=== PATIENT | male | born 1945 | race Caucasian/White ===

== ENCOUNTER → 2018-04-06 12:57 | Outpatient (CLI) | payer MEDICARE, SELFPAY ==
[2018-01-05 16:31] VITALS: TEMP 36.6
[2018-04-06 13:14] LABS: Add Manual Diff / Slide Review NO; Basophils Percent Auto 0.5 % (0-2); Hematocrit 45.4 % (41-53); Hemoglobin 15.3 g/dL (13.5-17.5); Mean Corpuscular HGB Conc 33.8 % (30-36); Mean Corpuscular Hemoglobin 31.4 PG (26-34); Mean Corpuscular Volume 92.8 fL (80-100); Neutrophils Absolute Auto 6300 /uL (3000-5900); Neutrophils Percent Auto 84.5 % (50-75); Platelet Count 328 X10^3/uL (150-400); Red Blood Cell Count 4.89 X10^6/uL (4.5-5.9); Red Cell Distribution Width 14.2 % (11.6-14.8); White Blood Cell Count 7.4 X10^3/uL (4.5-11.0)
[2018-04-06 13:29] LABS: Alanine Aminotransferase 43 IU/L (21-72); Albumin 4.2 g/dL (3.5-5.0); Albumin Globulin Ratio 1.7 (1.0-2.8); Alkaline Phosphatase 55 U/L (38-126); Aspartate Aminotransferase 47 IU/L (17-59); BUN Creatinine Ratio 23.8 (6-22); Blood Urea Nitrogen 19 mg/dL (9-20); Calcium 9.3 mg/dL (8.4-10.2); Carbon Dioxide 28 mmol/L (22-32); Chloride 103 mmol/L (98-107); Estimated Glomerular Filt Rate > 60.0 mL/min (>60); Globulin 2.5 g/dL (1.7-4.1); Glucose 112 mg/dL (80-110); HEMOLYSIS < 15 (0-50); Potassium 3.8 mmol/L (3.4-5.1); Sodium 140 mmol/L (137-145); Total Protein 6.7 g/dL (6.3-8.2)
[2018-04-06 13:47] LABS: Bilirubin Total 0.6 mg/dL (0.2-1.3)
[2018-04-09 15:52] LABS: Abnormal Protein Band 1 0.2 g/dL (NONE DETECTED); Albumin 4.1 g/dL (3.8-4.8); Alpha 1 Globulin 0.3 g/dL (0.2-0.3); Alpha 2 Globulin 0.6 g/dL (0.5-0.9); Beta 1 Globulin 0.4 g/dL (0.4-0.6); Gamma Globulin 0.7 g/dL (0.8-1.7); Protein, Total 6.4 g/dL (6.1-8.1)
== END ==
PROVIDERS: PCP Family Medicine; Visit Provider Nurse Practitioner Gerontology
DX: D47.2 Monoclonal gammopathy (principal)
CPT/HCPCS: 36415; 80053; 84155; 84165; 85025

== ENCOUNTER → 2018-08-03 14:00 | Outpatient (CLI) | payer MEDICARE, SELFPAY ==
[2018-08-03 15:20] LABS: Alanine Aminotransferase 33 IU/L (21-72); Albumin 4.3 g/dL (3.5-5.0); Albumin Globulin Ratio 1.6 (1.0-2.8); Alkaline Phosphatase 68 U/L (38-126); Aspartate Aminotransferase 36 IU/L (17-59); BUN Creatinine Ratio 18.8 (6-22); Bilirubin Total 0.5 mg/dL (0.2-1.3); Blood Urea Nitrogen 15 mg/dL (9-20); Calcium 9.3 mg/dL (8.4-10.2); Carbon Dioxide 26 mmol/L (22-32); Chloride 103 mmol/L (98-107); Estimated Glomerular Filt Rate > 60.0 mL/min (>60); Globulin 2.7 g/dL (1.7-4.1); Glucose 104 mg/dL (80-110); HEMOLYSIS < 15 (0-50); Potassium 3.7 mmol/L (3.4-5.1); Sodium 141 mmol/L (137-145)
[2018-08-03 15:21] LABS: Add Manual Diff / Slide Review NO; Basophils Percent Auto 0.5 % (0-2); Eosinophils Percent Auto 0.3 % (2-4); Hematocrit 45.8 % (41-53); Hemoglobin 15.5 g/dL (13.5-17.5); Lymphocytes Percent Auto 11.3 % (25-40); Mean Corpuscular HGB Conc 33.9 % (30-36); Mean Corpuscular Volume 91.4 fL (80-100); Monocytes Percent Auto 6.2 % (3-14); Neutrophils Absolute Auto 7800 /uL (3000-5900); Neutrophils Percent Auto 81.7 % (50-75); Platelet Count 350 X10^3/uL (150-400); Red Cell Distribution Width 13.9 % (11.6-14.8); White Blood Cell Count 9.5 X10^3/uL (4.5-11.0)
[2018-08-06 18:49] LABS: Beta-2-Microglobulin 1.75 mg/L (< 2.52)
[2018-08-06 22:19] LABS: Abnormal Protein Band 1 0.2 g/dL (NONE DETECTED); Albumin 4.2 g/dL (3.8-4.8); Alpha 1 Globulin 0.3 g/dL (0.2-0.3); Alpha 2 Globulin 0.6 g/dL (0.5-0.9); Beta 1 Globulin 0.4 g/dL (0.4-0.6); Gamma Globulin 0.8 g/dL (0.8-1.7); Protein, Total 6.5 g/dL (6.1-8.1)
== END ==
PROVIDERS: PCP Family Medicine; Visit Provider Nurse Practitioner Gerontology
DX: D47.2 Monoclonal gammopathy (principal)
CPT/HCPCS: 36415; 80053; 82232; 84155; 84165; 85025

== ENCOUNTER → 2018-10-15 09:41 | Outpatient (CLI) | payer OTHER, SELFPAY | PROVIDERS: PCP Family Medicine; Visit Provider Family Medicine | DX: G56.02 Carpal tunnel syndrome, left upper limb (principal) | CPT/HCPCS: 95885; 95886; 95910 ==

== ENCOUNTER → 2019-01-28 16:21 | Outpatient (CLI) | payer OTHER, SELFPAY ==
--- NOTE | 2019-01-28 16:24 | DI.RAD.S_ITS ---
PROCEDURE: XR LUMBAR SPINE 2-3V INDICATIONS: LUMBAR RADICULOPATY TECHNIQUE: 3 views of the lumbar spine were acquired. COMPARISON: [facility], CT, ABDOMEN W&WO CONTRAST, 01/31/2016, 8:37. [facility], CT, ABDOMEN W&WO CONTRAST, 06/30/2017, 9:47. FINDINGS: Bones: 5 [id number] vertebrae are present. There is near-normal bony alignment with only a slight degree of grade one anterolisthesis of L3 on L4. There is, however, moderately severe to severe multilevel degenerative disc disease and facet osteoarthritis along the thoracolumbar junction and lumbosacral spine. The facet osteoarthritis is moderate to the L3-4 level where it becomes moderately severe than more prominent at L4-5 and especially L5-S1. The generalized reduction in disc height is moderately severe overall, and multilevel spinal and foraminal stenosis would be expected. No vertebral body compression fractures. No suspicious bony lesions. Soft tissues: Overlying bowel gas pattern is normal. There are right upper quadrant suspicious soft tissue calcifications and also similar calcifications are seen at the left upper quadrant in a pattern consistent with relatively extensive urinary tract stones. IMPRESSION: Moderately severe to severe degenerative disc disease and facet osteoarthritis overall, best seen from L3 inferiorly with associated mild grade 1 anterolisthesis of L3 on L4. Incidental finding of multiple small renal collecting system calculi bilaterally, also previously present during CT scanning from January of 2016. Dictated by: Cecilio Manuel M.D. on 01/28/2019 at 17:03 Approved by: Cecilio Manuel M.D. on 01/28/2019 at 17:06
== END ==
PROVIDERS: PCP Family Medicine; Visit Provider Family Medicine
DX: M51.16 Intervertebral disc disorders with radiculopathy, lumbar region (principal); M47.26 Other spondylosis with radiculopathy, lumbar region; M43.16 Spondylolisthesis, lumbar region; N20.0 Calculus of kidney
CPT/HCPCS: 72100

== ENCOUNTER → 2019-03-03 17:42 | Outpatient (CLI) | payer OTHER, SELFPAY ==
--- NOTE | 2019-03-03 | DI.MRI.S_ITS ---
PROCEDURE: MR LUMBAR SPINE WO CON INDICATIONS: OTHER SPONDYLOSIS WITH RADICULOPATHY, LUMBOSACRAL TECHNIQUE: Noncontrast sagittal T1 spin echo and T2 fast echo, sagittal STIR, axial T1 and T2 fast spin echo through the lumbar spine. In cases with scoliosis, additional coronal T2 fast spin echo may be performed. COMPARISON: [facility], CR, CHEST 2 VIEW, 04/24/2016, 13:27. [facility], CR, CHEST 2 VIEW, 05/27/2008, 12:47. [facility], CT, ABDOMEN W&WO CONTRAST, 06/30/2017, 9:47. [facility], CR, XR LUMBAR SPINE 2-3V, 01/28/2019, 16:30. FINDINGS: Image quality: Excellent. Alignment and Curvature: Suspicious for transitional anatomy. Vestigial ribs are noted at T12. L5 is sacralized. There is normal bony alignment. Bone Marrow: Degenerative endplate signal changes are present in the lower thoracic spine and lumbar spine. No acute vertebral body compression fractures. Spinal Cord: Conus medullaris terminates at the T12-L1 level. Visualized cord demonstrates normal signal and size. Paraspinous Soft Tissues: No paravertebral masses. T11-T12: Severe loss of disc height and disc desiccation. There is diffuse posterior disc bulge and disc osteophyte complex. Mild bilateral facet arthropathy. The central canal is moderately narrowed. Moderate to severe bilateral foraminal stenosis. Suspect nerve root impingement. T12-L1: Severe loss of disc height and disc desiccation. There is diffuse posterior disc bulge and disc osteophyte complex. Nhqi-eq-svmbmfft bilateral facet arthropathy. The central canal is moderately narrowed. Moderate to severe bilateral foraminal stenosis. Suspect nerve root impingement. L1-L2: Isdugeyz-ch-vwqbrz loss of disc height and disc desiccation. There is diffuse posterior disc bulge and disc osteophyte complex. Mild bilateral facet arthropathy and hypertrophy of ligamentum flavum. The central canal is moderately narrowed. Severe right and moderate left foraminal stenosis. There is possible right nerve root impingement. L2-L3: Nyqsxmmn-fc-gxraph loss of disc height and disc desiccation. There is diffuse posterior disc bulge and disc osteophyte complex. Severe right and moderate left facet arthropathy and hypertrophy of ligamentum flavum. The central canal is severely narrowed. Severe bilateral foraminal stenosis. There is nerve root impingement bilaterally. L3-L4: Severe loss of disc height and disc desiccation. There is diffuse posterior disc bulge and disc osteophyte complex. Severe bilateral facet arthropathy and hypertrophy of ligamentum flavum. The central canal is severely narrowed. Severe left and moderate right foraminal stenosis. There is left nerve root impingement. L4-L5: Severe loss of disc height and disc desiccation. There is diffuse posterior disc bulge and disc osteophyte complex. Severe bilateral facet arthropathy. The central canal is moderately narrowed. Moderate to severe bilateral foraminal stenosis. There is possible bilateral nerve root impingement. L5-S1: Normal appearance. IMPRESSION: 1. Transitional anatomy is present. There is sacralization of L5. Vestigial ribs are noted at T12. Please confirm vertebral levels on radiographs prior to any surgery or interventional procedures. 2. Multilevel degenerative disc disease and facet arthropathy as described. 3. Severe central canal stenosis at L2-L3 and L3-L4. Moderate central canal stenosis at T11-T12, T12-L1, L1-L2 and L4-L5. 4. Multilevel foraminal stenosis as described. Dictated by: Maximus Todd M.D. on 03/05/2019 at 8:30 Approved by: Maximus Todd M.D. on 03/05/2019 at 9:36
== END ==
PROVIDERS: Family Provider Family Medicine; PCP Family Medicine; Visit Provider Orthopaedic Surgery Orthopaedic Surgery of the Spine
DX: M47.27 Other spondylosis with radiculopathy, lumbosacral region (principal); M47.26 Other spondylosis with radiculopathy, lumbar region; M51.16 Intervertebral disc disorders with radiculopathy, lumbar region; M51.17 Intervertebral disc disorders with radiculopathy, lumbosacral region; M48.061 Spinal stenosis, lumbar region without neurogenic claudication; M48.07 Spinal stenosis, lumbosacral region; M48.04 Spinal stenosis, thoracic region; M48.05 Spinal stenosis, thoracolumbar region
CPT/HCPCS: 72148

== ENCOUNTER → 2019-04-01 10:44 | Outpatient (CLI) | payer OTHER, SELFPAY ==
--- NOTE | 2019-04-01 11:11 | DI.CT.S_ITS ---
PROCEDURE: CT ABDOMEN WO/W CON INDICATIONS: right renal mass TECHNIQUE: Optional 5 mm thick noncontrast images acquired from the diaphragm to the iliac crests. After the administration of intravenous contrast, 5 mm thick images again acquired from the diaphragm to the iliac crests in the arterial and urographic phases. 5 mm thick coronal and sagittal reformats were then acquired. For radiation dose reduction, the following was used: automated exposure control, adjustment of mA and/or kV according to patient size. COMPARISON: [facility], CT, ABDOMEN W&WO CONTRAST, 06/30/2017, 9:47. [facility], CT, ABDOMEN W&WO CONTRAST, 01/31/2016, 8:37. FINDINGS: Image quality: Excellent. Lung bases: Lung bases are clear. Heart size is normal. Genitourinary: Within the collecting system of the kidneys bilaterally multiple calculi are present none of which appear obstructed, ranging in size from several millimeters to almost 1 cm. There is no sign of urothelial mass lesion but the exophytic lobulated mass at the lateral cortex of the lower third of the right kidney is again seen and demonstrates internal enhancement raising the internal radiodensity in the same area from approximately 20 Hounsfield units to 47 Hounsfield units on delayed imaging. This indicates internal viable tissue, but its interval change in size has been minimal if any. For example, the current maximal dimensions of this mass are 2.2 cm AP and 2.5 cm transverse, versus 2.4 x 2.2 cm previously. Other solid organs: Liver is normal in size and enhancement. Gallbladder appears normal.. Biliary system is non dilated. Pancreas enhances normally. Spleen is normal in size and enhancement. No adrenal nodules. Peritoneum and bowel: Unenhanced bowel loops are normal in wall thickness and caliber. No free fluid or air. Nodes and vessels: No retroperitoneal or mesenteric adenopathy by size criteria. Aorta and inferior vena cava are normal in caliber. A normal appendix is found at the right lower quadrant. Bones: No suspicious bony lesions. No vertebral body compression fractures. Miscellaneous: No ventral hernias. IMPRESSION: A lobulated mass at the lateral cortex of the lower third of the right kidney is again seen with maximal axial dimensions of 2.5 x 2.2 cm. This lobulated mass has internal soft tissue component showing definite contrast enhancement and therefore this does not represent a simple or a minimally complex cyst. This structure increases in radiodensity from approximately 20 Hounsfield units to 47 Hounsfield units on delayed post contrast imaging. This structure is considered most likely a low grade neoplasm, and continued urology consultation and followup CT or MR scanning at a schedule established by the Urology Department is recommended. Dictated by: Cecilio Manuel M.D. on 04/01/2019 at 15:00 Approved by: Cecilio Manuel M.D. on 04/01/2019 at 15:20
== END ==
PROVIDERS: Family Provider Urology; PCP Family Medicine; Visit Provider Family Medicine
DX: N28.89 Other specified disorders of kidney and ureter (principal)
CPT/HCPCS: 74170; Q9967

== ENCOUNTER 2019-07-19 10:03 | Emergency (ER) | payer OTHER, SELFPAY ==
[2019-07-19 10:08] VITALS: BP 180/81; PULSE 63; RESP 16; TEMP 36.4; O2SAT 96; BMI 25.0
--- NOTE | 2019-07-19 10:17 | PC.NURSE ---
Patient reports sudden onset of burning sensation in left thigh it felt like I was going to get a el horse in left calf. Reports concerns of blood clot. I read through all my discharge paper work after my Laminectomy in lower back friday. Incision site appears well, healing WNL. Denies much pain at incision site unless I lay on it Denies SOB but I am worried it is going that way Patient and report anxiety. you just don't mess around with this stuff reassured patient it was a good decision to get checked out especially after recent surgery
[2019-07-19 10:21] VITALS: BP 180/81; PULSE 61; RESP 12; O2SAT 99
[2019-07-19 11:00] VITALS: BP 165/78; PULSE 62; RESP 17; O2SAT 96
--- NOTE | 2019-07-19 11:28 | DI.US.S_ITS ---
PROCEDURE: US PERIPH VENOUS LOW EXTREM LT INDICATIONS: CALF PAIN AFTER SURGERY TECHNIQUE: Real-time imaging, as well as color and pulse Doppler interrogation, were performed of the lower extremity deep veins from the inguinal ligament to the popliteal fossa. COMPARISON: None. FINDINGS: The common femoral, femoral and popliteal veins are normally compressible, and free of intraluminal thrombus. Color and pulse Doppler demonstrate normal phasic intraluminal flow. There is normal augmentation response to distal compression maneuver. IMPRESSION: No evidence of DVT in visualized portion of left lower extremity veins. Dictated by: Zack Rossi M.D. on 07/19/2019 at 12:17 Approved by: Zack Rossi M.D. on 07/19/2019 at 12:17
--- NOTE | 2019-07-19 11:32 | ED.EXTPRO ---
HPI - Extremity Problem General Chief complaint: Extremity Problem,Nontraumatic Stated complaint: flushing heat in leg/pain in left leg Time Seen by Provider: 07/19/19 10:07 Source: patient Mode of arrival: Ambulatory History of Present Illness HPI Narrative: Patient comes emergency department complaining left leg heat and pain started this morning. Patient had a laminectomy 4 days ago, and states he has been getting up and around. He states that this morning, he noticed a hot feeling in thigh, almost as if somebody was blowing a hot puff of air on the area. He then noticed a ?charley horse? type pain in his left calf. Patient states that all of the discomfort has resolved. He denies any swelling in his leg. No history of DVT. He does not have a history of smoking and is no family history of DVT. No chest pain or shortness of breath. He states that he has been recovering well from his surgery otherwise. No fevers. No other complaints at this time. Related Data Home Medications Medication Instructions Recorded Confirmed ketoconazole 1 applic TOPICAL BID 07/19/19 07/19/19 oxycodone-acetaminophen 1 - 2 tab PO Q6H PRN 07/19/19 07/19/19 prednisone 4 mg PO DAILY 07/19/19 07/19/19 Allergies Allergy/AdvReac Type Severity Reaction Status Date / Time iron [IRON] AdvReac Unknown HIVES Verified 04/15/18 15:58 Review of Systems Constitutional Constitutional: Denies chills, Denies fatigue, Denies fever(s), Denies frequent falls, Denies lethargy and Denies weakness Eyes Eyes: Denies change in vision, Denies eye discharge, Denies irritation and Denies loss of vision ENT Ears, Nose, Mouth, and Throat: Denies change in voice, Denies dizziness, Denies neck pain, Denies sore throat and Denies throat swelling Cardiovascular Cardiovascular: Denies chest pain, Denies irregular heart rhythm, Denies lightheadedness, Denies palpitations, Denies dyspnea, Denies dyspnea on exertion and Denies orthopnea Respiratory Respiratory: Denies cough, Denies dyspnea, Denies dyspnea on exertion and Denies wheezing Gastrointestinal Gastrointestinal: Denies abdominal pain, Denies change in bowel habits, Denies diarrhea, Denies nausea and Denies vomiting Genitourinary Genitourinary: Denies hematuria, Denies flank pain, Denies urinary incontinence and Denies urinary urgency Musculoskeletal Musculoskeletal: Denies back pain, Denies muscle weakness, Denies neck pain, Denies numbness and Denies tingling Comments: Leg pain Integumentary/Breasts Skin/Breast: Denies pruritus, Denies erythema, Denies rash and Denies wounds Neurologic Neurologic: Denies behavioral changes, Denies confusion, Denies dizziness, Denies frequent falls, Denies loss of vision, Denies numbness, Denies tingling and Denies weakness Psychiatric Psychiatric: Denies anxiety, Denies behavioral changes, Denies confusion, Denies depression, Denies homicidal ideation and Denies suicidal ideation Endocrine Endocrine: Denies fatigue, Denies flushing and Denies palpitations Hematologic/Lymphatic Hematologic/Lymphatic: Denies easy bruising Allergic/Immunologic Allergic/Immunologic: Denies urticaria, Denies throat swelling and Denies wheezing Patient History Medical History (Updated 07/19/19 @ 12:11 by Maryan Gannon MD) Monoclonal gammopathy of undetermined significance (Acute) Surgical History (Updated 07/19/19 @ 11:42 by aMryan Gannon MD) H/O laminectomy (Acute) Social History (Updated 07/19/19 @ 11:42 by Maryan Gannon MD) Smoking Status: Never smoker Exam Initial Vital Signs Initial Vital Signs: Vital Signs Temperature 97.6 F 07/19/19 10:08 Pulse Rate 63 07/19/19 10:08 Respiratory Rate 16 07/19/19 10:08 Blood Pressure 180/81 H 07/19/19 10:08 Pulse Oximetry 96 07/19/19 10:08 Const General: cooperative and well developed Nutritional Appearance: well nourished Orientation: alert, awake, oriented x3 and not confused [facility] Head: normocephalic and atraumatic Ears: external ears normal Nose: external nose normal and No nasal discharge Face and sinus: face symmetric and No dry mucous membranes Mouth: oral mucosae normal and moist mucous membranes Teeth and gingiva: dentition normal Throat: uvula midline Eyes General: appearance normal, both eyes and all related structures Eyelids: eyelids normal Conjunctivae: conjunctivae normal Sclera: sclerae normal Pupils: PERRL EOM: EOM intact bilaterally Neck Neck: normal visual inspection, trachea midline, No lymphadenopathy, No midline deformity and No JVD Lymphatic: No lymphedema Chest Chest: normal inspection of the chest Resp Effort & Inspection: normal respiratory effort, able to speak in complete sentences, no respiratory distress and no use of accessory muscles Auscultation: clear to auscultation bilaterally, no rales, no rhonchi and no wheezes Cardio Rate: regular rate Rhythm: regular rhythm Heart Sounds: no click, no gallops, murmur systolic II/ and no rubs Pulses: normal peripheral pulses GI Inspection: non-distended Palpation: soft, no hepatosplenomegaly, No guarding, No pulsatile mass and No tender Back/Spine/Pelvis Back: No CVA tenderness Cervical Spine: cervical ROM normal and No pain with cervical ROM Thoracic/Lumbar Spine: thoracic and lumbar spine normal to inspection Skin General: no rashes or lesions noted, No jaundice and No petechiae Other: Clean, dry, intact and healing lumbar surgical incision. Neuro General: alert, oriented x3, gait normal and no focal motor deficits Speech: speech normal Extrem General: full ROM, no clubbing, cyanosis or edema, no pedal edema and no calf tenderness Psych Appearance: well kempt Mental Status: mental status grossly normal Attitude: cooperative Thought Content: normal and suicidality Judgment: judgment good Course Course Course Narrative: Patient was worked up with ultrasound of his left lower extremity, and was given a dose of Percocet in the ED, as he was due for his pain medication. The ultrasound was negative for DVT. I did not find any evidence of infection, and I felt the patient was stable for discharge home. We have discussed home management of symptoms, as well as the usual indications for return. Orders Ordered: ED Orders 07/19/19 11:28 US periph venous low extrem lt Stat Discontinued Medications Oxycodone/Acetaminophen (Percocet 5/325) 1 tab PO NOW ONE Stop: 07/19/19 11:29 Last Admin: 07/19/19 12:12 Dose: 1 tab Documented by: SILAS Vital Signs Vital signs: Vital Signs - 8 hr 07/19/19 12:03 Pulse Rate 62 Respiratory Rate 17 Blood Pressure [Right Arm] 155/64 H Pulse Oximetry 97 MDM - Extremity (Nontraumatic) Medical Records Attestation: I reviewed the patient's medical records. Imaging Data Ultrasound extremity: Radiologist's impression: PROCEDURE: US PERIPH VENOUS LOW EXTREM LT INDICATIONS: CALF PAIN AFTER SURGERY TECHNIQUE: Real-time imaging, as well as color and pulse Doppler interrogation, were performed of the lower extremity deep veins from the inguinal ligament to the popliteal fossa. COMPARISON: None. FINDINGS: The common femoral, femoral and popliteal veins are normally compressible, and free of intraluminal thrombus. Color and pulse Doppler demonstrate normal phasic intraluminal flow. There is normal augmentation response to distal compression maneuver. IMPRESSION: No evidence of DVT in visualized portion of left lower extremity veins. Dictated by: Zack Rossi M.D. on 07/19/2019 at 12:17 Approved by: Zack Rossi M.D. on 07/19/2019 at 12:17 Discharge Plan Departure Patient Disposition: Home Clinical Impression: Acute leg pain Qualifiers: Laterality: left Qualified Code(s): M79.605 - Pain in left leg Discharge Date/Time: 07/19/19 12:22 Instructions: DI for Leg Pain Activity Restrictions/Additional Instructions: Your ultrasound looks good--there is no evidence of a blood clot in your leg. Additionally, there is no evidence of infection at this time. The pain may be caused by actual cramping, or by temporary nerve dysfunction related to your recent surgery. He may take her pain medications as needed, should follow up with your surgeon, as planned, for postoperative re-evaluation. Prescriptions: No Action prednisone 1 mg tablet 4 mg PO DAILY RF: 0 ketoconazole 2 % cream 1 applic TOPICAL BID RF: 0 oxycodone-acetaminophen 5-325 mg tablet 1 - 2 tab PO Q6H PRN (Reason: POST-OP PAIN) RF: 0 Referrals: Matt George MD [Primary Care Provider] -
[2019-07-19 12:03] VITALS: BP 155/64; PULSE 62; RESP 17; O2SAT 97
[2019-07-19] MEDS: OXYCODONE/ACETAMINOPHEN 5/325 TABLET 1 TAB PO (12:12)
== END 2019-07-19 12:22 | disposition home or self-care (01) ==
PROVIDERS: Emergency Provider Emergency Medicine; Family Provider Urology; PCP Family Medicine
DX: M79.605 Pain in left leg (principal)
CPT/HCPCS: 93041; 93971; 99283

== ENCOUNTER 2019-08-16 13:49 | Day surgery (SDC) | payer OTHER, SELFPAY ==
[2019-08-16] VITALS (7 sets, daily range): BP systolic 131–165; BP diastolic 73–88; PULSE 66–72; RESP 11–16; TEMP 36.1–37.6; O2SAT 96–99; BMI 24.6
--- NOTE | 2019-08-16 08:07 | PM.HP.1 ---
History of Present Illness History of Present Illness Date Patient Seen: 08/16/19 Chief complaint: [id number] Narrative: 74 year old male comes in today for consideration of a screening colonoscopy. One previous colonoscopy in 2007, significant for hyperplastic polyp. No family history of colon cancer or colon polyps. There have been no lower GI symptoms suggesting disease such as change in bowel habits, bleeding, abdominal pain or anemia. Overall health issues have been stable, including no major cardiac events for at least 6 weeks. PCP: Dr. George Past medical history: Hypertension Plan myalgia rheumatica Hyperlipidemia Carpal tunnel syndrome, left Hearing loss Kidney mass Left lower quadrant pain Onychiomycosis Anxiety disorder Insomnia Degenerative joint disease Erectile dysfunction Past surgical history: Tonsillectomy and adenoidectomy Vasectomy Bilateral carpal tunnel syndrome Right partial knee replacement Back surgery Family history: ASCVD, pancreatic cancer Social history: , now in new relationship. Medications: Prednisone 4 mg p.o. daily, on taper Ketoconazole 2% cream to affected areas twice daily . Patient History Medical History (Updated 08/03/19 @ 00:00 by ) Monoclonal gammopathy of undetermined significance (Acute) Surgical History (Updated 07/19/19 @ 11:42 by Maryan Gannon MD) H/O laminectomy (Acute) Family & Social History Tobacco & Substance use: Smoking Status Never smoker Meds Home Medications and Allergies Home Medications Medication Instructions Recorded Confirmed Type ketoconazole 1 applic TOPICAL BID 07/19/19 07/19/19 History prednisone 4 mg PO DAILY 07/19/19 07/19/19 History acetaminophen [Tylenol] 325 mg PO QID PRN 08/16/19 08/16/19 History Allergies Allergy/AdvReac Type Severity Reaction Status Date / Time No Known Drug Allergies Allergy Verified 08/16/19 14:10 Review of Systems Review of Systems ROS Unobtainable: All systems reviewed & are unremarkable except as noted in HPI and below Exam Narrative Exam Narrative: GENERAL: Alert and oriented, appearing stated age and in no acute distress. HEENT: Head normocephalic/atraumatic. LUNGS: Clear to ausculation bilaterally, no wheezes, rhonchi or rales. CV: Normal S1 and S2 with regular rate and rhythm, no audible murmurs, rubs or gallops. ABDOMEN: Soft, non-tender, non-distended, no organomegaly. Positive bowel sounds. EXTREMITIES: No clubbing, cyanosis, or edema. NEURO: Cranial nerves II through XII grossly intact, no focal deficits. PSYCH: Alert and oriented x 3. SKIN: No concerning lesions. Assessment & Plan Assessment & Plan narrative: 1. History of colon polyps, hyperplastic 2. Screening for colon cancer Plan for colonoscopy. The nature and character of the procedure as well as anticipated results were discussed. The possibility of not completing the procedure was also discussed. Possible complications including aspiration pneumonia, bleeding, perforation and reaction to medications either for sedation or preparation and missed lesions were discussed. Questions were answered and proceeding to the colonoscopy was elected. Informed consent signed. I sincerely appreciate the referral allowing me to participate in this patient's care. Please contact me with any questions or concerns.
--- NOTE | 2019-08-16 08:16 | PM.OP.ENDO ---
Operative Date/Time/Diagnoses Date of procedure: 08/16/19 Time of procedure: 14:40 Pre-op diagnosis: 1. History of colon polyps, hyperplastic 2. Screening for colon cancer Post-op diagnosis: other (Normal colonoscopy) Procedure & Clinicians Study performed: 1. Colonoscopy Indications: 1. History of colon polyps, hyperplastic 2. Screening for colon cancer Surgeon: Juanita Lozano Procedure Notes Procedure in detail: ENDOSCOPIST: Juanita Lozano MD Sedation RN: Cecilia Bond RN Sedation start time: 14:39 Sedation end time: 15:13 PROCEDURE: Colonoscopy INDICATIONS: 1. History of colon polyps, hyperplastic 2. Screening for colon cancer MEDICATION: Levsin 0.125 mg sublingual, incremental doses of Versed and fentanyl until appropriate level sedation achieved. ASA CLASS: 2 CECAL WITHDRAWAL TIME: 8 minutes COMPLICATIONS: None. EXTENT OF PROCEDURE: Cecum. QUALITY OF PREP: Good with portions of liquid stool. PROCEDURE: Prior to insertion of the colonoscope, a digital rectal examination was accomplished with circumferential palpation of the distal rectal mucosa without significant findings being noted. The high-definition colonoscope was passed into the rectum in the usual fashion and advanced over to the cecum without difficulty. The ileocecal valve, appendiceal stoma, and medial wall all could be inspected and no abnormalities were seen. ASCENDING COLON: As the colonoscope was withdrawn, care was taken to expose and inspect the haustral folds and no abnormalities were seen. HEPATIC FLEXURE: Normal, no polyps, diverticula, or other abnormalities. TRANSVERSE COLON: Normal, no polyps, diverticula, or other abnormalities. DESCENDING COLON: Moderate diverticulosis, otherwise, normal, no polyps or other abnormalities. SIGMOID COLON: Moderate diverticulosis, otherwise, normal, no polyps or other abnormalities. RECTUM: Normal. J maneuver was produced. There was no significant perianal disease. The J maneuver was broken. The remainder of the rectum was inspected and there was no external hemorrhoid disease. The scope was withdrawn. IMPRESSION: 1. Normal colonoscopy 2. Moderate diverticulosis, left-sided PLAN: 1. Repeat colonoscopy in 10 years. The possibility of a missed lesion including a malignancy has been discussed with the patient previously. Potential alarm symptoms have been discussed and should be reported immediately.
[2019-08-16] MEDS: HYOSCYAMINE 0.125 MG TABLET PO (14:18)
[2019-08-16] MEDS: SODIUM CHLORIDE 0.9% 1,000 ML 200 ML IV (14:19)
[2019-08-16] MEDS: fentaNYL 250 MCG/5 ML INJ IV (14:39)
[2019-08-16] MEDS: MIDAZOLAM 5 MG/5 ML VIAL IV (14:40)
--- NOTE | 2019-08-16 15:33 | SUR.PHASEI ---
HOB elevated, drinking juice, talking, denies pain. spoke to him. Resp unlabored,skin warm and dry
== END 2019-08-16 16:02 | disposition home or self-care (01) ==
PROVIDERS: Family Provider Urology; PCP Family Medicine; Visit Provider Student in an Organized Health Care Education/Training Program
PROC: 0DJD8ZZ Inspection of Lower Intestinal Tract, Via Natural or Artificial Opening Endoscopic (ICD-10-PCS; CPT 45378; principal; 2019-08-16 15:00)
DX: Z12.11 Encounter for screening for malignant neoplasm of colon (principal); Z86.010 Personal history of colon polyps; K57.30 Diverticulosis of large intestine without perforation or abscess without bleeding
CPT/HCPCS: G0105; J2250; J3010

== ENCOUNTER 2019-09-25 09:54 | Emergency (ER) | payer OTHER, SELFPAY ==
[2019-09-25 10:04] VITALS: BP 200/90; PULSE 63; RESP 13; TEMP 35.9; O2SAT 95
--- NOTE | 2019-09-25 10:13 | ED_ITS ---
HPI - Abdominal Pain General Chief Complaint: Abdominal Pain Stated Complaint: SEVERE STOMACH PAIN Time Seen by Provider: 09/25/19 10:06 Source: patient Mode of arrival: Ambulatory Limitations: no limitations History of Present Illness HPI narrative: Patient is 74-year-old male who presents with right upper quadrant pain ongoing for the last 2 days. He has felt nauseous at times and has vomited number of times as well. It's nonradiating. He denies any chest pain or shortness of breath. His he seems to be in quite a bit of distress moment. MD complaint: abdominal pain Onset (ago): day(s) (2) Location: RUQ Severity: moderate Radiation: none Migration to: no migration Associated symptoms: nausea and vomiting Related Data Home Medications Medication Instructions Recorded Confirmed ketoconazole 1 applic TOPICAL DAILY 07/19/19 08/16/19 prednisone 3 mg PO DAILY 07/19/19 08/16/19 acetaminophen [Tylenol] 325 mg PO QID PRN 08/16/19 08/16/19 Previous Rx's Medication Instructions Recorded hydrocodone-acetaminophen 1 tab PO Q6H PRN #10 tab 09/25/19 ketorolac 10 mg PO TID PRN #14 tab 09/25/19 ondansetron 4 mg PO Q8H PRN #10 tab 09/25/19 tamsulosin [Flomax] 0.4 mg PO DAILY #7 cap 09/25/19 Allergies Allergy/AdvReac Type Severity Reaction Status Date / Time No Known Drug Allergies Allergy Verified 08/16/19 14:10 Review of Systems Review of Systems ROS Unobtainable: All systems reviewed & are unremarkable except as noted in HPI and below Constitutional Constitutional: Denies fatigue Cardiovascular Cardiovascular: Denies dyspnea and Denies dyspnea on exertion Respiratory Respiratory: Denies cough, Denies dyspnea, Denies dyspnea on exertion and Denies wheezing Gastrointestinal Gastrointestinal: Reports as per HPI, Reports abdominal pain, Reports nausea and Reports vomiting Genitourinary Genitourinary: Denies hematuria, Denies flank pain, Denies urinary incontinence and Denies urinary urgency Musculoskeletal Musculoskeletal: Denies back pain, Denies muscle weakness, Denies numbness and Denies tingling Integumentary/Breasts Skin/Breast: Denies pruritus, Denies erythema, Denies rash and Denies wounds Neurologic Neurologic: Denies confusion, Denies numbness and Denies tingling Psychiatric Psychiatric: Denies anxiety, Denies confusion, Denies depression, Denies homicidal ideation and Denies suicidal ideation Endocrine Endocrine: Denies fatigue and Denies flushing Allergic/Immunologic Allergic/Immunologic: Denies wheezing Patient History Medical History (Updated 09/25/19 @ 11:59 by Judy Cross DO) Monoclonal gammopathy of undetermined significance (Acute) Surgical History (Updated 07/19/19 @ 11:42 by Maryan Gannon MD) H/O laminectomy (Acute) Social History (Updated 07/19/19 @ 11:42 by Maryan Gannon MD) household members: friend(s) Smoking Status: Never smoker Smoking Status: Never smoker Substance Use Type: does not use Exam Initial Vital Signs Initial Vital Signs: Vital Signs Temperature 96.6 F L 09/25/19 10:04 Pulse Rate 63 09/25/19 10:04 Respiratory Rate 13 09/25/19 10:04 Blood Pressure 200/90 H 09/25/19 10:04 Pulse Oximetry 95 09/25/19 10:04 GENERAL: Alert male appears in distress and discomfort. HEENT: Head atraumatic,EOMI, pupils reactive CARDIOVASCULAR: Regular rate and rhythm without murmurs, rubs or gallops. RESPIRATORY: Breath sounds equal bilaterally, no wheezes rales or rhonchi. ABDOMEN: Soft, nontender. Normoactive bowel sounds all 4 quadrants. No guarding or rebound. : No CVA tenderness EXTREMITIES: Normal range of motion, no clubbing or edema. Neurovascularly intact NEUROLOGICAL: Alert and oriented x4.Normal gait and speech. Cranial nerves II through XII grossly intact. SKIN: Warm, dry, no laceration, no petechiae, no rashes or lesions. Course Orders Ordered: ED Orders 09/25/19 10:14 Complete Blood Count AUTO DIFF Stat Comprehensive Metabolic Panel Stat Lipase Stat 09/25/19 10:31 US abdomen limited Stat 09/25/19 10:36 Urinalysis and Microscopic Stat 09/25/19 10:47 CT abdomen pelvis w con Stat Discontinued Medications Hydromorphone HCl (Dilaudid) 0.5 mg IV NOW ONE Stop: 09/25/19 10:37 Last Admin: 09/25/19 10:39 Dose: 0.5 mg Documented by: MEISENB Sodium Chloride (Normal Saline 0.9%) 1,000 mls @ 150 mls/hr IV CONT ROBERT Last Infusion: 09/25/19 12:24 Dose: 0 mls/hr Documented by: Admin: 09/25/19 10:24 Dose: 150 mls/hr Documented by: RISHABH Ketorolac Tromethamine (Toradol) 30 mg IV NOW ONE Stop: 09/25/19 10:29 Last Admin: 09/25/19 10:32 Dose: 30 mg Documented by: RISHABH Ondansetron HCl (Zofran) 4 mg IV NOW ONE Stop: 09/25/19 10:22 Last Admin: 09/25/19 10:25 Dose: 4 mg Documented by: RISHABH Vital Signs Vital signs: Vital Signs - 8 hr 09/25/19 10:04 09/25/19 10:40 09/25/19 11:17 Temperature 96.6 F L Pulse Rate 63 60 60 Respiratory Rate 13 22 Blood Pressure 200/90 H Blood Pressure [Right Arm] 208/96 H 183/87 H Pulse Oximetry 95 100 95 09/25/19 11:30 09/25/19 12:00 Temperature Pulse Rate 60 64 Respiratory Rate 18 16 Blood Pressure Blood Pressure [Right Arm] 145/82 H 160/80 H Pulse Oximetry 96 98 MDM - Abdominal Pain Lab Data Attestation: I reviewed the patient's lab results. Result diagrams: 09/25/19 10:14 09/25/19 10:14 Labs: Lab Results 09/25/19 09/25/19 09/25/19 Range/Units 10:14 10:14 10:36 WBC 12.5 H (4.5-11.0) X10^3/uL RBC 5.60 (4.5-5.9) X10^6/uL Hgb 17.6 H (13.5-17.5) g/dL Hct 52.0 (41-53) % MCV 92.9 (80-100) fL MCH 31.5 (26-34) PG MCHC 33.9 (30-36) % RDW 14.0 (11.6-14.8) % Plt Count 342 (150-400) X10^3/uL Neut % (Auto) 83.5 H (50-75) % Lymph % (Auto) 8.0 L (25-40) % [place] % (Auto) 8.0 (3-14) % Eos % (Auto) 0.2 L (2-4) % Baso % (Auto) 0.3 (0-2) % Neut # (Auto) 82140 H (5251-8598) /uL Lymph # (Auto) 1000 L (7113-8084) /uL [place] # (Auto) 1000 H (0-900) /uL Eos # (Auto) 0 (0-450) /uL Baso # (Auto) 0 (0-100) /uL Sodium 140 (137-145) mmol/L Potassium 3.5 (3.4-5.1) mmol/L Chloride 100 (98-107) mmol/L Carbon Dioxide 28 (22-32) mmol/L BUN 17 (9-20) mg/dL Creatinine 1.10 (0.66-1.25) mg/dL Estimated GFR > 60.0 (>60) mL/min BUN/Creatinine Ratio 15.5 (6-22) Glucose 116 H (80-110) mg/dL Calcium 10.0 (8.4-10.2) mg/dL Total Bilirubin 1.1 (0.2-1.3) mg/dL AST 39 (17-59) IU/L ALT 25 (<50) IU/L Alkaline Phosphatase 96 (38-126) U/L Total Protein 8.6 H (6.3-8.2) g/dL Albumin 5.1 H (3.5-5.0) g/dL Globulin 3.5 (1.7-4.1) g/dL Albumin/Globulin Ratio 1.5 (1.0-2.8) Lipase 76 (23-300) U/L Urine Color Yellow Urine Appearance Clear Urine pH 5.5 (4.5-8.0) Ur Specific [place] 1.020 (1.000-1.035) Urine Protein Negative (Negative) Urine Glucose (UA) Negative (Negative) g/dL Urine Ketones Trace H (NEGATIVE) Urine Occult Blood 3+ H (Negative) Urine Nitrate Negative (Negative) Urine Bilirubin Negative (NEGATIVE) Urine Urobilinogen 0.2 (0.2) E.U./dL Ur Leukocyte Esterase Negative (NEGATIVE) Urine RBC 1-5/hpf (0-5/HPF) Urine WBC 0-1/hpf (0-5/HPF) Ur Squamous Epith Cells None seen (0-5/HPF) Urine Bacteria None seen (None) Ur Culture Indicated? Cult not indicated Point of care testing: Urine Dip Bedside Urine Glucose Negative Bedside Urine Bilirubin - Negative Bedside Urine Ketone + 15 Urine Specific [place] 1.020 Bedside Urine Occult Blood ++ Bedside Urine pH 6.0 Bedside Urine Protein +/- 15 Bedside Urine Urobilinogen - Negative Bedside Urine Nitrite - Negative Bedside Urine Leukocytes +/- [address] scan - abdomen/pelvis: Radiologist's Impression: PROCEDURE: CT ABDOMEN PELVIS W CON INDICATIONS: severe ab pain TECHNIQUE: After the administration of oral and intravenous contrast, 5 mm thick sections acquired from the diaphragms to the symphysis. 5 mm thick coronal and sagittal reformats were performed. For radiation dose reduction, the following was used: automated exposure control, adjustment of mA and/or kV according to patient size. COMPARISON: [facility], CT, CT ABDOMEN WO/W CON, 04/01/2019, 11:03. [facility], CT, ABDOMEN W&WO CONTRAST, 06/30/2017, 9:47. [facility], CT, ABDOMEN WITH AND WITHOUT CONTR, 05/09/2008, 9:27. FINDINGS: Image quality: Excellent. ABDOMEN: Lung bases: Lung bases are clear. Incidental note is made of calcified granulomas at the right lung base. Heart size is normal. Coronary artery atherosclerosis is noted, but not adequately evaluated. Solid organs: The liver is hypodense when compared to the spleen. There is a focus of increased density that demonstrates probable avid enhancement involving the lateral segment of the left hepatic lobe, which is unchanged since 2007, likely representing a flash filling hemangioma. No suspicious imaging characteristics are evident. Otherwise, the liver is unremarkable. No significant intrahepatic or extrahepatic biliary dilatation is present. The spleen and pancreas are within normal limits. The adrenals are unremarkable. The kidneys are normal in size. There are numerous bilateral nonobstructing renal calculi ranging in size from approximately 3 mm to 8 mm. Multiple hypodense lesions involving both kidneys probably represent punctate renal cysts, but are too small to adequately characterize. One of these lesions within the upper portion of the right kidney is suspicious for a possible calyceal diverticulum containing renal calculi. There is a heterogeneous exophytic lesion arising from the inferior portion of the right kidney, which demonstrates mild to moderate complexity with internal septations, measuring up to approximately 3.3 x 2.6 cm, which is similar to multiple prior examinations dating back to 2017; however, has significantly increased in size and appearance since 2008. There has been interval development of [id number] right-sided hydronephrosis and proximal hydroureter. There is at least a partially obstructing proximal right ureteral calculus identified that measures 5 x 4 x 5 mm (image 44 series 2). No additional right ureteral calculi are evident. Right-sided perinephric edema is noted. There is no left-sided hydronephrosis or hydroureter. No left ureteral calculi are evident. Peritoneum and bowel: The stomach is unremarkable. The small bowel loops are nondilated. Moderate amount of residual stool is identified within the colon. Extensive co lonic diverticulosis is identified without surrounding inflammation to suggest diverticulitis. The appendix is well-visualized and normal. There is no free fluid or loculated fluid collection. There is no free air. Nodes and vessels: No retroperitoneal or mesenteric adenopathy. Aorta and infe rior vena cava are normal in caliber. Aortic and iliac artery atherosclerosis is noted. There is also prominent atherosclerosis involving the origins of the bilateral renal arteries. Bones: No acute fracture or suspicious osseous lesion is identified. Severe degenerative changes of the thoracolumbar spine are present, similar to prior studies. PELVIS: Genitourinary: Bladder wall thickness is normal. The prostate is heterogeneous and mildly enlarged. Miscellaneous: No inguinal hernias or adenopathy. No free fluid or loculated fluid collection is evident. Bones: No suspicious bony lesions. No acute pelvic fractures are evident. Moderate to severe degenerative changes of the pelvic joints are noted. IMPRESSION: 1. At least partially obstructing 5 mm proximal right ureteral calculus with associated mild to moderate hydronephrosis and hydroureter. 2. Multiple bilateral nonobstructing renal calculi. 3. Complex cystic mass of the inferior right kidney remain suspicious for low- grade neoplasm, not significantly changed since the most recent study dated 04/01/19. Continued followup imaging is recommended if a biopsy/resection is not warranted at this time. 4. Probable flash filling hemangioma the liver is unchanged. There is hepatic steatosis. 5. Clinical diverticulosis without diverticulitis. No bowel obstruction. 6. Severe degenerative changes of the spine and pelvic joints. Dictated by: Jose L Carbajal M.D. on 09/25/2019 at 10:13 US - abdomen: Radiologist's Impression: PROCEDURE: US ABDOMEN LIMITED INDICATIONS: RUQ PAIN TECHNIQUE: Real-time focused scanning was performed of the abdomen, with image documentation. COMPARISON: [facility], CT, CT ABDOMEN PELVIS W CON, 09/25/2019, 10:56. FINDINGS: The gallbladder is normal in size without gallbladder wall thickening or pericholecystic fluid. No cholelithiasis is evident. The patient did not exhibit a positive sonographic Alexander's sign. The liver is normal in size and demonstrate symmetric echogenicity when compared to the right kidney. Numerous right-sided renal calculi are identified. Mild hydronephrosis is evident. A complex cystic mass along the inferior aspect of the right kidney is not adequately characterized on this study, but is noted to demonstrate mild internal blood flow. The pancreas is grossly unremarkable. The abdominal aorta and inferior vena cava were not imaged. IMPRESSION: 1. No cholelithiasis or evidence of acute cholecystitis. 2. Complex inferior right renal mass remains suspicious for low-grade neoplasm. Continued followup imaging is recommended if a resection/biopsy is not warranted at this time. 3. Numerous right renal calculi with associated mild right-sided hydronephrosis. Dictated by: Jose L Carbajal M.D. on 09/25/2019 at 10:50 MDM Narrative Medical decision making narrative: Patient's pain is significantly improved after Dilaudid. He is found to have multiple right kidney stones including a 5 mm 1 on the right side. He actually is followed by Dr. Hicks for Urology who is also following his right renal mass. There is suspicion for possible neoplasm however there is no significant change since April 2019. Patient says it's been closely monitored years and generally stable and not concerning. He does not show any sign of infection. He says he frequently gets nauseous pain medications. He is given anti nausea medication pain medication Flomax. Discharge Plan Departure Patient Disposition: Home Clinical Impression: Calculus of kidney Discharge Date/Time: 09/25/19 12:24 Instructions: DI for Kidney Stones Activity Restrictions/Additional Instructions: *You have been diagnosed with kidney stone and renal mass *What to do: At this time continue fluid intake you should past your kidney stone but it may take up to 2 weeks. You also have a renal mass however it does not appear changed since April 2019. *Continue to take medications as directed-->[facility] TO [facility] Ketorolac 10 mg every 6 hours if needed for [id number] pain [place] 1 tablet every 6 hours if needed for severe pain Zofran 4 mg every 8 hours if needed for nausea or vomiting, recommend taking about 20 minutes prior to [place] to help prevent vomiting Flomax 0.4 mg once daily *Follow up with your primary care provider in 2-[address] Hicks on Friday to schedule follow-up appointment for kidney stone and mass *Return to ER if you should have inability to tolerate fluids, increasing pain, or any new, worsening or concerning symptoms Prescriptions: New hydrocodone-acetaminophen 5-325 mg tablet 1 tab PO Q6H PRN (Reason: pain) Qty: 10 RF: 0 tamsulosin [Flomax] 0.4 mg capsule,extended release 24hr 0.4 mg PO DAILY Qty: 7 RF: 0 ondansetron 4 mg tablet,disintegrating 4 mg PO Q8H PRN (Reason: nausea and vomiting) Qty: 10 RF: 0 ketorolac 10 mg tablet 10 mg PO TID PRN (Reason: pain) Qty: 14 RF: 0 No Action prednisone 1 mg tablet 3 mg PO DAILY RF: 0 ketoconazole 2 % cream 1 applic TOPICAL DAILY RF: 0 acetaminophen [Tylenol] 325 mg Capsule 325 mg PO QID PRN (Reason: Pain (Scale Score 1-3)) RF: 0 Referrals: Matt George MD [Primary Care Provider] -
[2019-09-25] MEDS: SODIUM CHLORIDE 0.9% 1,000 ML 150 ML IV (10:24)
[2019-09-25] MEDS: ONDANSETRON 4 MG/2 ML INJ IV (10:25)
[2019-09-25 10:31] LABS: Add Manual Diff / Slide Review NO; Basophils Absolute Auto 0 /uL (0-100); Basophils Percent Auto 0.3 % (0-2); Eosinophils Absolute Auto 0 /uL (0-450); Eosinophils Percent Auto 0.2 % (2-4); Hemoglobin 17.6 g/dL (13.5-17.5); Lymphocytes Absolute Auto 1000 /uL (1100-4500); Mean Corpuscular HGB Conc 33.9 % (30-36); Mean Corpuscular Hemoglobin 31.5 PG (26-34); Mean Corpuscular Volume 92.9 fL (80-100); Monocytes Absolute Auto 1000 /uL (0-900); Neutrophils Absolute Auto 10500 /uL (1500-7000); Neutrophils Percent Auto 83.5 % (50-75); Platelet Count 342 X10^3/uL (150-400); White Blood Cell Count 12.5 X10^3/uL (4.5-11.0)
--- NOTE | 2019-09-25 10:31 | DI.US.S_ITS ---
PROCEDURE: US ABDOMEN LIMITED INDICATIONS: RUQ PAIN TECHNIQUE: Real-time focused scanning was performed of the abdomen, with image documentation. COMPARISON: [facility], CT, CT ABDOMEN PELVIS W CON, 09/25/2019, 10:56. FINDINGS: The gallbladder is normal in size without gallbladder wall thickening or pericholecystic fluid. No cholelithiasis is evident. The patient did not exhibit a positive sonographic Alexander's sign. The liver is normal in size and demonstrate symmetric echogenicity when compared to the right kidney. Numerous right-sided renal calculi are identified. Mild hydronephrosis is evident. A complex cystic mass along the inferior aspect of the right kidney is not adequately characterized on this study, but is noted to demonstrate mild internal blood flow. The pancreas is grossly unremarkable. The abdominal aorta and inferior vena cava were not imaged. IMPRESSION: 1. No cholelithiasis or evidence of acute cholecystitis. 2. Complex inferior right renal mass remains suspicious for low-grade neoplasm. Continued followup imaging is recommended if a resection/biopsy is not warranted at this time. 3. Numerous right renal calculi with associated mild right-sided hydronephrosis. Dictated by: Jose L Carbajal M.D. on 09/25/2019 at 10:50 Approved by: Jose L Carbajal M.D. on 09/25/2019 at 10:52
[2019-09-25] MEDS: KETOROLAC 60 MG/2 ML VIAL 30 MG IV (10:32)
[2019-09-25 10:37] LABS: Appearance Urine UA CLEAR; Bilirubin Urine UA NEGATIVE (NEGATIVE); Color Urine UA YELLOW; Glucose Urine UA NEGATIVE (Negative); Ketones Urine UA TRACE (NEGATIVE); Leukocyte Esterase Urine UA NEGATIVE (NEGATIVE); Nitrite Urine UA NEGATIVE (Negative); Occult Blood Urine UA 3+ (Negative); Protein Urine UA NEGATIVE (Negative); Urobilinogen Urine UA 0.2 E.U./dL (0.2); pH Urine UA 5.5 (4.5-8.0)
[2019-09-25 10:38] LABS: Bacteria Urine None Seen
[2019-09-25] MEDS: HYDROMORPHONE 0.5 MG INJ IV (10:39)
[2019-09-25 10:40] VITALS: BP 208/96; PULSE 60; RESP 22; O2SAT 100
[2019-09-25 10:42] LABS: Alanine Aminotransferase 25 IU/L (<50); Albumin 5.1 g/dL (3.5-5.0); Albumin Globulin Ratio 1.5 (1.0-2.8); Alkaline Phosphatase 96 U/L (38-126); Aspartate Aminotransferase 39 IU/L (17-59); BUN Creatinine Ratio 15.5 (6-22); Bilirubin Total 1.1 mg/dL (0.2-1.3); Blood Urea Nitrogen 17 mg/dL (9-20); Carbon Dioxide 28 mmol/L (22-32); Chloride 100 mmol/L (98-107); Estimated Glomerular Filt Rate > 60.0 mL/min (>60); Globulin 3.5 g/dL (1.7-4.1); Glucose 116 mg/dL (80-110); HEMOLYSIS < 15 (0-50); Lipase 76 U/L (23-300); Potassium 3.5 mmol/L (3.4-5.1); Sodium 140 mmol/L (137-145); Total Protein 8.6 g/dL (6.3-8.2)
[2019-09-25 10:46] LABS: Squamous Epithelial Cell Urine None Seen (0-5/HPF); WBC Urine 0-1/HPF (0-5/HPF)
--- NOTE | 2019-09-25 10:47 | DI.CT.S_ITS ---
PROCEDURE: CT ABDOMEN PELVIS W CON INDICATIONS: severe ab pain TECHNIQUE: After the administration of oral and intravenous contrast, 5 mm thick sections acquired from the diaphragms to the symphysis. 5 mm thick coronal and sagittal reformats were performed. For radiation dose reduction, the following was used: automated exposure control, adjustment of mA and/or kV according to patient size. COMPARISON: [facility], CT, CT ABDOMEN WO/W CON, 04/01/2019, 11:03. [facility], CT, ABDOMEN W&WO CONTRAST, 06/30/2017, 9:47. [facility], CT, ABDOMEN WITH AND WITHOUT CONTR, 05/09/2008, 9:27. FINDINGS: Image quality: Excellent. ABDOMEN: Lung bases: Lung bases are clear. Incidental note is made of calcified granulomas at the right lung base. Heart size is normal. Coronary artery atherosclerosis is noted, but not adequately evaluated. Solid organs: The liver is hypodense when compared to the spleen. There is a focus of increased density that demonstrates probable avid enhancement involving the lateral segment of the left hepatic lobe, which is unchanged since 2007, likely representing a flash filling hemangioma. No suspicious imaging characteristics are evident. Otherwise, the liver is unremarkable. No significant intrahepatic or extrahepatic biliary dilatation is present. The spleen and pancreas are within normal limits. The adrenals are unremarkable. The kidneys are normal in size. There are numerous bilateral nonobstructing renal calculi ranging in size from approximately 3 mm to 8 mm. Multiple hypodense lesions involving both kidneys probably represent punctate renal cysts, but are too small to adequately characterize. One of these lesions within the upper portion of the right kidney is suspicious for a possible calyceal diverticulum containing renal calculi. There is a heterogeneous exophytic lesion arising from the inferior portion of the right kidney, which demonstrates mild to moderate complexity with internal septations, measuring up to approximately 3.3 x 2.6 cm, which is similar to multiple prior examinations dating back to 2017; however, has significantly increased in size and appearance since 2007. There has been interval development of [id number] right-sided hydronephrosis and proximal hydroureter. There is at least a partially obstructing proximal right ureteral calculus identified that measures 5 x 4 x 5 mm (image 44 series 2). No additional right ureteral calculi are evident. Right-sided perinephric edema is noted. There is no left-sided hydronephrosis or hydroureter. No left ureteral calculi are evident. Peritoneum and bowel: The stomach is unremarkable. The small bowel loops are nondilated. Moderate amount of residual stool is identified within the colon. Extensive colonic diverticulosis is identified without surrounding inflammation to suggest diverticulitis. The appendix is well-visualized and normal. There is no free fluid or loculated fluid collection. There is no free air. Nodes and vessels: No retroperitoneal or mesenteric adenopathy. Aorta and inferior vena cava are normal in caliber. Aortic and iliac artery atherosclerosis is noted. There is also prominent atherosclerosis involving the origins of the bilateral renal arteries. Bones: No acute fracture or suspicious osseous lesion is identified. Severe degenerative changes of the thoracolumbar spine are present, similar to prior studies. PELVIS: Genitourinary: Bladder wall thickness is normal. The prostate is heterogeneous and mildly enlarged. Miscellaneous: No inguinal hernias or adenopathy. No free fluid or loculated fluid collection is evident. Bones: No suspicious bony lesions. No acute pelvic fractures are evident. Moderate to severe degenerative changes of the pelvic joints are noted. IMPRESSION: 1. At least partially obstructing 5 mm proximal right ureteral calculus with associated mild to moderate hydronephrosis and hydroureter. 2. Multiple bilateral nonobstructing renal calculi. 3. Complex cystic mass of the inferior right kidney remain suspicious for low-grade neoplasm, not significantly changed since the most recent study dated 04/01/19. Continued followup imaging is recommended if a biopsy/resection is not warranted at this time. 4. Probable flash filling hemangioma the liver is unchanged. There is hepatic steatosis. 5. Clinical diverticulosis without diverticulitis. No bowel obstruction. 6. Severe degenerative changes of the spine and pelvic joints. Dictated by: Jose L Carbajal M.D. on 09/25/2019 at 10:13 Approved by: Jose L Carbajal M.D. on 09/25/2019 at 10:21
[2019-09-25 10:49] LABS: Culture Indicated Urine Cult Not Indicated; RBC Urine 1-5/HPF (0-5/HPF)
[2019-09-25 11:17] VITALS: BP 183/87; PULSE 60; O2SAT 95
[2019-09-25 11:30] VITALS: BP 145/82; PULSE 60; RESP 18; O2SAT 96
[2019-09-25 12:00] VITALS: BP 160/80; PULSE 64; RESP 16; O2SAT 98
== END 2019-09-25 12:24 | disposition home or self-care (01) ==
PROVIDERS: Emergency Provider Emergency Medicine; Family Provider Urology; PCP Family Medicine
DX: N20.0 Calculus of kidney (principal)
CPT/HCPCS: 36415; 74177; 76705; 80053; 81001; 81003; 83690; 85025; 96361; 96374; 96375; 99284; 99285; J1170; J1885; J2405; Q9967

== ENCOUNTER → 2019-10-22 13:45 | Outpatient (CLI) | payer OTHER, SELFPAY ==
--- NOTE | 2019-10-22 | DI.CT.S_ITS ---
PROCEDURE: CT ABDOMEN PELVIS WO CON INDICATIONS: KIDNEY STONES TECHNIQUE: Noncontrast 5 mm thick sections acquired from the diaphragms to the symphysis. 5 mm thick coronal and sagittal reformats were then performed. For radiation dose reduction, the following was used: automated exposure control, adjustment of mA and/or kV according to patient size. COMPARISON: [facility], CT, CT ABDOMEN PELVIS W CON, 09/25/2019, 10:56. [facility], CR, XR ABDOMEN 1 VIEW, 10/13/2019, 14:35. FINDINGS: Image quality: Excellent. Lung bases: Lung bases are clear. Heart size is normal. Urinary system: Both kidneys are normal in size. There are multiple 2-5 mm kidney stones bilaterally which do not appear to have significantly changed and do not appear obstructive to the central collecting system bilaterally. No hydronephrosis or perinephric fat stranding. Both ureters appear non-dilated throughout their expected courses. Bladder wall thickness is normal; no calcified bladder stones. Other solid organs: Liver is normal in size. Gallbladder appears normal, partially contracted. Pancreas is normal in contours. Spleen is normal in size. No adrenal nodules. Peritoneum and bowel: Unenhanced bowel loops demonstrate normal wall thickness and caliber. No free fluid or air. Nodes and vessels: No retroperitoneal or mesenteric adenopathy by size criteria. Aorta and inferior vena cava are normal in caliber. Abdominal wall: No ventral hernias. Pelvis: No free pelvic fluid. No inguinal hernias or adenopathy. Bones: No suspicious bony lesions. No vertebral body compression fractures. IMPRESSION: The number and size of the multiple bilateral collecting system calculi present have not changed from 09/25/19. No obstructive influences identified. The ureters bilaterally appear normal, no bladder calculus is found. Dictated by: Cecilio Manuel M.D. on 10/22/2019 at 15:15 Approved by: Cecilio Manuel M.D. on 10/22/2019 at 15:17
== END ==
PROVIDERS: Family Provider Urology; PCP Family Medicine; Referring Provider Urology; Visit Provider Urology
DX: N28.1 Cyst of kidney, acquired (principal)
CPT/HCPCS: 74176

== ENCOUNTER → 2020-05-30 09:42 | Outpatient (CLI) | payer OTHER, SELFPAY ==
--- NOTE | 2020-05-30 | DI.US.S_ITS ---
PROCEDURE: US RENAL COMPLETE INDICATIONS: Disorder of kidney and ureter, unspecified TECHNIQUE: Real-time scanning was performed of the kidneys and bladder, with image documentation. COMPARISON: [facility], CT, CT ABDOMEN WO/W CON, 04/01/2019, 11:03. [facility], CT, ABDOMEN W&WO CONTRAST, 06/30/2017, 9:47. CT, KIDNEY/ URETER/BLADDER, 01/02/2009, 17:10. [facility], CT, ABDOMEN WITH AND WITHOUT CONTR, 05/09/2008, 9:27. [facility], CT, ABDOMEN W&WO CONTRAST, 01/31/2016, 8:37. [facility], CT, CT ABDOMEN PELVIS W CON, 09/25/2019, 10:56. [facility], CT, CT ABDOMEN PELVIS WO CON, 10/22/2019, 13:44. FINDINGS: Kidneys: Kidneys are normal in size. Right kidney measures 11.0 cm long; left kidney measures 11.7 cm long. Right renal cortical thickness is 1.8 cm; left renal cortical thickness is 1.6 cm. Renal cortical echotexture is normal. There are multiple renal calculi bilaterally. There is a 2.2 x 2.2 x 3.5 cm solid, hyperechoic mass in the inferior pole of right kidney, not significant changed from the last CT dated 09/25/2019. Bladder: Pre-void bladder volume is 356.5 mL. Post-void residual is 12.5 mL. Pre-void images demonstrate no intraluminal masses or stones. On pre-void images, both ureteral jets are noted with color Doppler interrogation. (Of note, ureteral jets may not be detectable in up to 25% of cases due to insufficient differences in specific gravity between ureteral and bladder urine). Prostate is enlarged. Miscellaneous: No free pelvic fluid. IMPRESSION: 1. A 2.2 x 2.2 x 3.5 cm solid, hypoechoic mass in the inferior pole of the right kidney, not significantly changed in size since 09/25/2019. 2. Nephrolithiasis bilaterally with multiple nonobstructive renal calculi. No hydronephrosis. 3. Small postvoid residual. 4. Enlarged prostate. Dictated by: Maximus Todd M.D. on 05/30/2020 at 11:54 Approved by: Maximus Todd M.D. on 05/30/2020 at 12:05
== END ==
PROVIDERS: Family Provider Urology; PCP Family Medicine; Referring Provider Family Medicine; Visit Provider Urology
DX: N28.89 Other specified disorders of kidney and ureter (principal); N20.0 Calculus of kidney; N40.0 Benign prostatic hyperplasia without lower urinary tract symptoms
CPT/HCPCS: 76770

== ENCOUNTER → 2020-06-27 09:36 | Outpatient (CLI) | payer OTHER, SELFPAY ==
--- NOTE | 2020-06-27 | DI.RAD.S_ITS ---
PROCEDURE: XR HIP W PEL IF DONE RT 2V INDICATIONS: RIGHT HIP PAIN TECHNIQUE: 2 views of the hip were acquired. COMPARISON: [facility], CT, CT ABDOMEN PELVIS WO CON, 10/22/2019, 13:44. FINDINGS: Bones: No fractures or dislocations. No suspicious bony lesions. The visualized pelvic ring appears intact. There is severe narrowing of the right hip joint with near bone on bone contact, subchondral sclerosis and cystic change. Periarticular osteophyte formation is present. Soft tissues: No suspicious soft tissue calcifications or masses. IMPRESSION: Severe right hip joint degeneration. Dictated by: Evens Suarez [facility] Interpreted: Surya Dyson MD on 06/27/2020 at 11:12 Approved by: Surya Dyson M.D. on 06/27/2020 at 16:11
== END ==
PROVIDERS: Family Provider Urology; PCP Family Medicine; Referring Provider Family Medicine; Visit Provider Family Medicine
DX: M25.551 Pain in right hip (principal); M16.11 Unilateral primary osteoarthritis, right hip
CPT/HCPCS: 73502

== ENCOUNTER → 2020-07-21 07:56 | Outpatient (CLI) | payer OTHER, SELFPAY ==
--- NOTE | 2020-07-21 | DI.ECHO.S_ITS ---
[facility] +---------+ : : [address] : [place] : : : : [id number] : : : : Phone: [phone]+ Echocardiogram Report + + :Name: LEIDA TAYLOR JR Study Date: 07/21/2020 Height: 65 in : [id number] 152 [facility] : : Gender: Male BSA: 1.8 m2 : :: 1945 Age: 75 yrs BP: 165/96 mmHg: :Reason For Study: Murmur : : Performed By: Jessica Landry : :Referring: UMBERTO ECHAVARRIA : + + Interpretation Summary Normal sinus rhythm. Normal LV size, wall thickness, wall motion and LV systolic function. EF is 60-65%. Normal chamber sizes. Aortic valve leaflets are mildly calcified and thickened. No significant regurgitation or stenosis. Mild MR in the setting of normal mitral valve leaflets. No prior study available for comparison. Procedure: A two-dimensional transthoracic echocardiogram with color flow and Doppler was performed. The study quality was technically adequate. There is no prior echocardiogram noted for this patient. The patient was in normal sinus rhythm during the exam. Left Ventricle: The left ventricle is normal in size and wall thickness. The ejection fraction is estimated to be 60-65%. Right Ventricle: The right ventricle is normal in size and function. Atria: The left atrial size is normal. Right atrial size is normal. There is no Doppler evidence for an interatrial shunt. Mitral Valve: The mitral valve leaflets appear borderline thickened, but open well. There is mild mitral regurgitation. Aortic Valve: The aortic valve is trileaflet. The aortic valve opens well. The aortic valve is slightly calcified. There is trace aortic regurgitation. Tricuspid Valve: The tricuspid valve is normal in structure and function. There is mild tricuspid regurgitation. The right ventricular systolic pressure is estimated to be at least 25 mmHg based on an estimated right atrial pressure of 3 mm Hg. Pulmonic Valve: The pulmonic valve leaflets are thin and pliable; valve motion is normal. There is a trace or physiologic amount of pulmonic regurgitation. Great Vessels: The aortic root is normal size. The ascending aorta is normal in size. The pulmonary artery is normal size. The IVC is of normal diameter and collapses greater than 50% with a sniff. This suggests a low right atrial pressure of 3 mm Hg. Pericardium/ Pleura There is no pericardial effusion. MMode/2D Measurements & Calculations LVIDd: 4.5 cm LVOT diam: 2.1 cm LVIDs: 3.1 cm Ao root diam: 3.6 cm FS: 31.4 % asc Aorta Diam: 3.4 cm IVSd: 1.0 cm LVPWd: 0.89 cm LV an. diameter/BSA (cm/m^2): 2.5 LV sys. diameter/BSA (cm/m^2): 1.7 LA A2 area: 20.9 cm2 RA long axis: 5.0 cm LA A4 area: 16.7 cm2 RA area: 12.4 cm2 LA length (vol): 5.4 cm RA vol: 26.6 ml LA vol: 54.7 ml RA : 15.1 ml/m2 LA vol index: 31.1 ml/m2 IVC diam: 1.8 cm RVD1 (basal): 3.7 cm TAPSE: 2.2 cm Doppler Measurements & Calculations Ao V2 max: 211.1 cm/sec LVOT Max Paulino: 98.2 cm/sec Ao V2 mean: 140.3 cm/sec LV V1 max P.9 mmHg Ao max P.8 mmHg LV V1 VTI: 19.2 cm Ao mean P.8 mmHg ALISSON(I,D): 1.7 cm2 Ao V2 VTI: 38.9 cm ALISSON(V,D): 1.6 cm2 sev ratio: 0.49 ALISSON indexed to BSA (cm^2/m^2): 0.95 MV E max paulino: 68.6 cm/sec TR max paulino: 235.5 cm/sec MV A max paulino: 76.0 cm/sec TR max P.2 mmHg MV E/A: 0.90 PA V2 max: 83.6 cm/sec Med Peak E' Paulino: 5.6 cm/sec PA V2 mean: 56.8 cm/sec E/E' med: 12.3 PA mean P.4 mmHg Lat Peak E' Paulino: 5.2 cm/sec PA Accel Time: 0.04 sec E/E' lat: 13.3 E/e' average: 12.8 MV dec time: 0.25 sec MR ERO: 0.03 cm2 MR VTI: 188.7 cm MR PISA: 0.76 cm2 MR flow rate: 21.2 cm3/sec MR PISA radius: 0.35 cm SV(LVOT): 65.1 ml Electronically signed by: Daksha Schreiber M.D. on Reading Physician:07/21/2020 09:50 PM
== END ==
PROVIDERS: Family Provider Urology; PCP Family Medicine; Referring Provider Family Medicine; Visit Provider Family Medicine
DX: R01.1 Cardiac murmur, unspecified (principal); I35.8 Other nonrheumatic aortic valve disorders
CPT/HCPCS: 93306